=== PATIENT | male | born 1955 | race Caucasian/White ===

== ENCOUNTER 2019-03-23 13:06 | Day surgery (SDC) | payer BC ==
[2019-03-23] MEDS ORDERED: PROPOFOL 10 MG/ML VIAL IV ONE (13:07)
[2019-03-23] MEDS ORDERED: LIDOCAINE 2% MDV (20MG/ML) 20ML VIAL IV ONE (13:07)
--- NOTE | 2019-03-24 15:41 | Operative Note ---
OPERATION: COLONOSCOPY. PREOPERATIVE DIAGNOSIS: Personal history of colon polyps, history of poor prep. POSTOPERATIVE DIAGNOSIS: Fair prep, otherwise normal exam. PROCEDURE: After informed consent was obtained from the patient, he was placed in the left lateral decubitus position in the endoscopy suite, sedated and monitored by the department of anesthesia. Digital rectal exam revealed no palpable rectal lesion. A well-lubricated [id number] colonoscope was inserted into the rectum and advanced to the cecum. Preparation quality was fair. Numerous areas were lavaged. Small polyps may have been obscured by the quality of the preparation. No obvious polyps were seen throughout the cecum, ascending colon, transverse colon, descending colon, sigmoid colon, and rectum. J-turn views of the anorectum were unrevealing. The endoscope was straightened, the rectal ampulla deflated, and the endoscope was removed. RECOMMENDATIONS: The patient should resume his medications and diet. Based on the prep quality and his polyp history, I would recommend a repeat exam in 3 years. As always, thank you for allowing me to participate in the healthcare of your patients. JEFF
== END 2019-03-23 14:24 | disposition home or self-care (01) ==
LOC: HOP 13:06
PROVIDERS: ATTEND Internal Medicine Gastroenterology
DX: Z12.11 Encounter for screening for malignant neoplasm of colon (principal); Z86.010 Personal history of colon polyps
CPT/HCPCS: 00812; G0105